=== PATIENT | male | born 1960 | race Caucasian/White ===

== ENCOUNTER 2017-10-23 08:32 | Emergency (ER) | payer BC, OTHER ==
[2017-10-23] MEDS ORDERED: Buffered Lidocaine 0.9% SYRIN* 5 ML/SYR SYRINGE INTRADERM ONE ×2 (09:06→09:28)
[2017-10-23] MEDS ORDERED: Tetan/Diph/Pertus SYR(Tdap)* 0.5 ML SYR(BOOSTRIX) use SYR IM ONE (09:06)
--- NOTE | 2017-10-23 09:10 | ED ---
Skin Complaint - HPI Summary HPI Summary: Dhren-[id number] patient here with left home laceration prior to arrival. He reports he was working on a ladder at work and started to fall. He avoided landing on the ground by catching himself on the door frame which he grabbed with his left hand. As a result, he now has a laceration on his hand. Denies numbness, tingling, weakness and can move fingers wrist and upper extremity without pain or difficulty. He is unsure of his last tetanus vaccine. He has not taken any medication prior to arrival. Although he denies anticoagulants for bleeding disorders, he reports he bleeds quite a bit whenever he gets caught. Denies easy bruising, epistaxis, bleeding gums. Does not want anything for pain at this time. - History of Current Complaint Chief Complaint: EDLacSutureRecheck Time Seen by Provider: 10/23/17 08:58 Stated Complaint: LT HAND LAC Hx Obtained From: Patient Pain Intensity: 2 - Allergy/Home Medications Allergies/Adverse Reactions: Allergies Allergy/AdvReac Type Severity Reaction Status Date / Time No Known Allergies Allergy Verified 10/23/17 09:30 Home Medications: Home Medications Fexofenadine (NF) [Raquel (NF)] 60 mg PO DAILY 10/23/17 [History Confirmed ] PMH/Surg Hx/FS Hx/Imm Hx Previously Healthy: Yes Endocrine/Hematology History: Denies: Hx Anticoagulant Therapy, Hx Blood Disorders - "bleed easily when I get cut", Hx Unexplained Bleeding Cardiovascular History: Denies: Hx Hypercholesterolemia, Hx Hypertension GI History: Denies: Hx Gastroesophageal Reflux Disease, Hx Gastrointestinal Bleed, Hx Ulcer History: Denies: Hx Acute Renal Failure, Hx Chronic Renal Failure - Surgical History Surgery Procedure, Year, and Place: appe; left ankle screws placed - Immunization History Immunizations Up to Date: Unable to Obtain/Confirm Infectious Disease History: No Infectious Disease History: Denies: Hx Clostridium Difficile, Hx Hepatitis, Hx Human Immunodeficiency Virus (HIV), Hx of Known/Suspected MRSA, Hx Shingles, Hx Tuberculosis, Hx Known/ Suspected VRE, Hx Known/Suspected VRSA, History Other Infectious Disease, Traveled Outside the [place] in Last 30 Days - Social History Occupation: Employed Full-time - costruction - lays insulation Lives: With Family Alcohol Use: Daily Alcohol Amount: 6 PK PER DAY Hx Substance Use: No Substance Use Type: Reports: None Hx Tobacco Use: No Smoking Status (MU): Never Smoked Tobacco Review of Systems Constitutional: Negative Positive: no symptoms reported Musculoskeletal: Negative Skin: Other - lac Neurological: Negative Psychological: Normal All Other Systems Reviewed And Are Negative: Yes Physical Exam Triage Information Reviewed: Yes Vital Signs On Initial Exam: Initial Vitals Temp Pulse Resp BP Pulse Ox 97.8 F 72 16 170/107 94 10/23/17 08:33 10/23/17 08:33 10/23/17 08:33 10/23/17 08:33 10/23/17 08:33 Vital Signs Reviewed: Yes Appearance: Positive: Well-Appearing, No Pain Distress, Well-Nourished Skin: Positive: Warm, Skin Color Reflects Adequate Perfusion - L-shaped laceration over palmar surface of Lt hand ENT: Positive: Hearing grossly normal Respiratory/Lung Sounds: Positive: Breath Sounds Present Cardiovascular: Positive: Pulses are Symmetrical in both Upper and Lower Extremities Musculoskeletal: Positive: Normal, Strength/ROM Intact Neurological: Positive: Normal, Sensory/Motor Intact, Alert, Oriented to Person Place, Time Psychiatric: Positive: Normal Procedures - Laceration/Wound Repair 1 Location: upper extremity - Lt hand Description: Linear - with jagged end Anesthesia: Local, Lido - buffered w/ HCO3 Length, Depth and Shape: 5cm x 5mm Betadine Prep?: Yes Irrigated w/ Saline (ccs): 500 Laceration/Wound Explored: clean Closure: Single Layer Suture Type: Other - ethilon 5-0 Number of Sutures: 13 Layer Closure?: No Sterile Dressing Applied?: Yes - triple anbx + gauze + JOSEFA wrap - hemodynamically stable Diagnostics - Vital Signs Vital Signs Temp Pulse Resp BP Pulse Ox 10/23/17 08:33 97.8 F 72 16 170/107 94 - Laboratory Lab Statement: Any lab studies that have been ordered have been reviewed, and results considered in the medical decision making process. Course/Dx - Diagnoses Provider Diagnoses: Laceration of left hand Discharge - Sign-Out/Discharge Documenting (check all that apply): Patient Departure - Discharge Plan Condition: Stable Disposition: HOME Prescriptions: Ibuprofen TAB* [Motrin TAB* 600 MG] 600 mg PO Q6H PRN #20 tab PRN Reason: Pain Patient Education Materials: Laceration (ED), Care For Your Stitches (ED) Forms: *Work Release Referrals: [facility] [Outside] Additional Instructions: Keep Dressing clean and dry and in place for the next 48 hours. After that time , you may remove dressing, gently wash wound with soap and water, rinse well and pat dry with clean cloth. Reapply triple antibiotic ointment and clean gauze dressing. Continue this daily until sutures are removed. Call your PCP ( or [facility] - information provided here) to schedule wound recheck and suture removal in 10-14 days. * If you develop redness, swelling, streaking, purulent drainage, fevers or chills, seek medical attention sooner or return to the emergency department. - Billing Disposition and Condition Condition: STABLE Disposition: Home
[2017-10-23 11:43] VITALS: BP 140/86
== END 2017-10-23 11:42 | disposition home or self-care (01) ==
LOC: ED 08:32
DX: S61.412A Laceration without foreign body of left hand, initial encounter (principal); W45.8XXA Other foreign body or object entering through skin, initial encounter; Y92.9 Unspecified place or not applicable; Z23 Encounter for immunization
CPT/HCPCS: 12002; 90471; 90715; 99283